=== PATIENT | female | born 1990 | race Caucasian/White ===

== ENCOUNTER 2018-08-01 18:33 | Emergency (ER) | payer MEDICAID ==
[~2018-08-01] VITALS: Ht 157.5 cm; Wt 63.6 kg
[2018-08-01 19:52] LABS: BASOPHILS % (AUTO) 1.1 % (0.0-2.0); EOSINOPHILS % (AUTO) 4.3 % (1.0-6.0); HEMATOCRIT 40.5 % (36-46); HEMOGLOBIN 13.5 g/dL (12.0-16.0); LYMPHOCYTES % (AUTO) 26.9 % (22.0-44.0); MEAN CORPUSCULAR HEMOGLOBIN 29.2 pg (26.0-34.0); MEAN CORPUSCULAR HGB CONC 33.3 G/dL (31.0-37.0); MEAN CORPUSCULAR VOLUME 88 fL (80-100); MONOCYTES # (AUTO) 0.7 K/uL (0.1-1.0); MONOCYTES % (AUTO) 6.1 % (2.0-9.0); NEUTROPHILS # (AUTO) 6.8 K/uL (1.8-7.7); NEUTROPHILS % (AUTO) 61.6 % (40.0-70.0); PLATELET COUNT (AUTO) 275 K/uL (150-450); RED BLOOD CELL COUNT(AUTO) 4.62 MIL/uL (4.00-5.20)
[2018-08-01 20:03] LABS: ANION GAP 9 mmol/L (8-16); CARBON DIOXIDE 28 mmol/L (22-29); CHLORIDE 103 mmol/L (98-107); CREATININE 0.63 mg/dL (0.60-1.30); GLOMERULAR FILTR. RATE CALC > 60 mL/min (>60); GLUCOSE,RANDOM 98 mg/dL (70-110); POTASSIUM 4.1 mmol/L (3.5-5.1); SODIUM SERUM 140 mmol/L (136-145); UREA NITROGEN, BLOOD 15 mg/dL (7-18)
[2018-08-01 20:09] LABS: ALANINE AMINOTRANSFERASE 23 U/L (12-78); ALBUMIN 3.9 g/dL (3.4-5.0); ALKALINE PHOSPHATASE 87 U/L (46-116); ASPARTATE AMINOTRANSFERASE 14 U/L (15-37); BILIRUBIN,TOTAL 0.3 mg/dL (0.1-1.0); TOTAL PROTEIN, SERUM 7.7 g/dL (6.4-8.2)
[2018-08-01 20:46] LABS: APPEARANCE,URINE CLOUDY (CLEAR); BILIRUBIN,URINE NEGATIVE (NEGATIVE); GLUCOSE, URINE (UA) NEGATIVE (NEGATIVE); KETONES,URINE NEGATIVE (NEGATIVE); LEUKOCYTE ESTERASE ,URINE SMALL (NEGATIVE); NITRATE,URINE NEGATIVE (NEGATIVE); OCCULT BLOOD,URINE NEGATIVE (NEGATIVE); PROTEIN,URINE NEGATIVE (NEGATIVE); UROBILINOGEN,URINE 0.2 mg/dL (<=1.0)
[2018-08-01 21:00] LABS: BACTERIA,URINE Few /HPF (None Seen); RBC,URINE None Seen /HPF (0-2); SQUAMOUS EPITHELIAL CELL,UR Moderate /LPF (None Seen)
[2018-08-01 21:35] VITALS: BP 138/68
== END 2018-08-01 21:37 | disposition home or self-care (01) ==
LOC: EMS 18:33
DX: R55 Syncope and collapse (principal); R42 Dizziness and giddiness; N39.0 Urinary tract infection, site not specified
CPT/HCPCS: 93005

== ENCOUNTER 2019-11-23 20:46 | Emergency (ER) | payer MEDICAID ==
[~2019-11-23] VITALS: Ht 162.6 cm; Wt 69.1 kg
[2019-11-23] MEDS: ACETAMINOPHEN 325 MG TABLET PO ONE ×2 (21:36→21:52)
[2019-11-24 00:30] VITALS: BP 114/65
== END 2019-11-24 01:00 | disposition home or self-care (01) ==
LOC: EMS 20:46
DX: S00.83XA Contusion of other part of head, initial encounter (principal); Y08.89XA Assault by other specified means, initial encounter; Y93.89 Activity, other specified; Y92.89 Other specified places as the place of occurrence of the external cause; Y99.8 Other external cause status
CPT/HCPCS: 70450; 70486; 72125

== ENCOUNTER 2020-04-16 22:46 | Emergency (ER) | payer MEDICAID ==
[~2020-04-16] VITALS: Ht 157.5 cm; Wt 77.3 kg
[2020-04-16] MEDS ORDERED: SODIUM CHLORIDE 0.9% 1,000 ML IV ONE (23:15)
[2020-04-16 23:29] LABS: APPEARANCE,URINE CLEAR (CLEAR); BILIRUBIN,URINE NEGATIVE (NEGATIVE); GLUCOSE, URINE (UA) NEGATIVE (NEGATIVE); KETONES,URINE NEGATIVE (NEGATIVE); LEUKOCYTE ESTERASE ,URINE NEGATIVE (NEGATIVE); NITRATE,URINE NEGATIVE (NEGATIVE); OCCULT BLOOD,URINE SMALL (NEGATIVE); PH,URINE 6.5 (5.0-8.0); PROTEIN,URINE NEGATIVE (NEGATIVE); UROBILINOGEN,URINE 0.2 mg/dL (<=1.0)
[2020-04-16 23:29] LABS: BASOPHILS % (AUTO) 0.8 % (0.0-2.0); HEMATOCRIT 37.1 % (36-46); HEMOGLOBIN 12.3 g/dL (12.0-16.0); LYMPHOCYTES # (AUTO) 3.8 K/uL (1.0-4.8); LYMPHOCYTES % (AUTO) 22.8 % (22.0-44.0); MEAN CORPUSCULAR VOLUME 88 fL (80-100); MONOCYTES # (AUTO) 0.8 K/uL (0.1-1.0); MONOCYTES % (AUTO) 4.8 % (2.0-9.0); NEUTROPHILS # (AUTO) 11.5 K/uL (1.8-7.7); NEUTROPHILS % (AUTO) 68.6 % (40.0-70.0); PLATELET COUNT (AUTO) 301 K/uL (150-450); RED BLOOD CELL COUNT(AUTO) 4.23 MIL/uL (4.00-5.20); RED CELL DISTRIBUTION WIDTH 12.5 % (11.5-14.5)
[2020-04-16 23:46] LABS: ANION GAP 9 mmol/L (8-16); CALCIUM, TOTAL 8.9 mg/dL (8.8-10.5); CARBON DIOXIDE 25 mmol/L (22-29); CHLORIDE 103 mmol/L (98-107); CREATININE 0.67 mg/dL (0.60-1.30); GLOMERULAR FILTR. RATE CALC > 60 mL/min (>60); GLUCOSE,RANDOM 89 mg/dL (70-110); POTASSIUM 3.9 mmol/L (3.5-5.1); SODIUM SERUM 137 mmol/L (136-145); UREA NITROGEN, BLOOD 10 mg/dL (7-18)
[2020-04-16 23:54] LABS: BACTERIA,URINE Few /HPF (None Seen); SQUAMOUS EPITHELIAL CELL,UR Few /LPF (None Seen); WBC,URINE 0-2 /HPF (0-5)
[2020-04-17 00:12] LABS: ALANINE AMINOTRANSFERASE 23 U/L (12-78); ALBUMIN 3.4 g/dL (3.4-5.0); ALKALINE PHOSPHATASE 63 U/L (46-116); ASPARTATE AMINOTRANSFERASE 12 U/L (15-37); BILIRUBIN,TOTAL 0.1 mg/dL (0.1-1.0); HCG,QUANTITATIVE 52851 mIU/mL (0-6); LIPASE 152 U/L (73-393); TOTAL PROTEIN, SERUM 7.7 g/dL (6.4-8.2)
[2020-04-17 02:28] VITALS: BP 129/77
== END 2020-04-17 02:32 | disposition home or self-care (01) ==
LOC: EMS 22:46
DX: O26.891 Other specified pregnancy related conditions, first trimester (principal); R11.0 Nausea
CPT/HCPCS: 29515; 76801; 76817

== ENCOUNTER 2020-06-28 12:49 | Emergency (ER) | payer MEDICAID ==
[~2020-06-28] VITALS: Ht 162.6 cm; Wt 81.8 kg
[2020-06-28 14:01] LABS: APPEARANCE,URINE CLEAR (CLEAR); BILIRUBIN,URINE NEGATIVE (NEGATIVE); GLUCOSE, URINE (UA) NEGATIVE (NEGATIVE); KETONES,URINE NEGATIVE (NEGATIVE); LEUKOCYTE ESTERASE ,URINE NEGATIVE (NEGATIVE); NITRATE,URINE NEGATIVE (NEGATIVE); OCCULT BLOOD,URINE NEGATIVE (NEGATIVE); PH,URINE 6.5 (5.0-8.0); PROTEIN,URINE NEGATIVE (NEGATIVE); UROBILINOGEN,URINE 0.2 mg/dL (<=1.0)
[2020-06-28 14:11] LABS: BACTERIA,URINE None Seen /HPF (None Seen); RBC,URINE None Seen /HPF (0-2); WBC,URINE None Seen /HPF (0-5)
[2020-06-28 14:20] LABS: BASOPHILS % (AUTO) 0.9 % (0.0-2.0); EOSINOPHILS % (AUTO) 2.9 % (1.0-6.0); HEMOGLOBIN 11.4 g/dL (12.0-16.0); LYMPHOCYTES # (AUTO) 2.4 K/uL (1.0-4.8); LYMPHOCYTES % (AUTO) 16.7 % (22.0-44.0); MEAN CORPUSCULAR HEMOGLOBIN 28.8 pg (26.0-34.0); MEAN CORPUSCULAR HGB CONC 33.5 G/dL (31.0-37.0); MEAN CORPUSCULAR VOLUME 86 fL (80-100); MONOCYTES # (AUTO) 0.6 K/uL (0.1-1.0); MONOCYTES % (AUTO) 4.4 % (2.0-9.0); NEUTROPHILS # (AUTO) 10.8 K/uL (1.8-7.7); NEUTROPHILS % (AUTO) 75.1 % (40.0-70.0); PLATELET COUNT (AUTO) 223 K/uL (150-450); RED BLOOD CELL COUNT(AUTO) 3.96 MIL/uL (4.00-5.20); RED CELL DISTRIBUTION WIDTH 12.4 % (11.5-14.5)
[2020-06-28 14:30] LABS: ANION GAP 16 mmol/L (8-16); CALCIUM, TOTAL 8.9 mg/dL (8.8-10.5); CARBON DIOXIDE 22 mmol/L (22-29); CHLORIDE 102 mmol/L (98-107); CREATININE 0.54 mg/dL (0.60-1.30); GLOMERULAR FILTR. RATE CALC > 60 mL/min (>60); GLUCOSE,RANDOM 89 mg/dL (70-110); POTASSIUM 3.5 mmol/L (3.5-5.1); SODIUM SERUM 140 mmol/L (136-145); UREA NITROGEN, BLOOD 5 mg/dL (7-18)
[2020-06-28 14:54] LABS: ALANINE AMINOTRANSFERASE 26 U/L (12-78); ALKALINE PHOSPHATASE 55 U/L (46-116); ASPARTATE AMINOTRANSFERASE 13 U/L (15-37); BILIRUBIN,TOTAL 0.2 mg/dL (0.1-1.0); TOTAL PROTEIN, SERUM 7.2 g/dL (6.4-8.2)
[2020-06-28 15:28] LABS: HCG,QUANTITATIVE 13363 mIU/mL (0-6)
[2020-06-28 17:43] VITALS: BP 129/59
== END 2020-06-28 17:49 | disposition home or self-care (01) ==
LOC: EMS 13:02
DX: O26.892 Other specified pregnancy related conditions, second trimester (principal); R10.2 Pelvic and perineal pain; D72.828 Other elevated white blood cell count; Z3A.18 18 weeks gestation of pregnancy
CPT/HCPCS: 76700; 76805; 80053; 81001; 84702; 85025; 99285

== ENCOUNTER 2021-10-30 21:12 | Emergency (ER) | payer MEDICAID ==
[~2021-10-30] VITALS: Ht 160 cm; Wt 68.0 kg
[2021-10-30 21:56] LABS: APPEARANCE,URINE HAZY (CLEAR); BILIRUBIN,URINE NEGATIVE (NEGATIVE); GLUCOSE, URINE (UA) NEGATIVE (NEGATIVE); KETONES,URINE NEGATIVE (NEGATIVE); LEUKOCYTE ESTERASE ,URINE LARGE (NEGATIVE); NITRATE,URINE NEGATIVE (NEGATIVE); OCCULT BLOOD,URINE MODERATE (NEGATIVE); PH,URINE 5.5 (5.0-8.0); PROTEIN,URINE 30-70 mg/dL (NEGATIVE); SPECIFIC GRAVITIY, URINE 1.009 (1.003-1.030); UROBILINOGEN,URINE <=1.0 mg/dL (<=1.0)
[2021-10-30 22:08] VITALS: BP 130/79
[2021-10-30 22:08] LABS: BACTERIA,URINE Few /HPF (None Seen); SQUAMOUS EPITHELIAL CELL,UR Rare /LPF (None Seen); WBC,URINE 51-100 /HPF (0-5)
[2021-10-30] MEDS ORDERED: PHEN-1103 PO (22:10)
[2021-10-30] MEDS ORDERED: SULF-261 PO (22:10)
== END 2021-10-30 22:23 | disposition home or self-care (01) ==
LOC: EMS 21:34
DX: N39.0 Urinary tract infection, site not specified (principal); F10.20 Alcohol dependence, uncomplicated; Z98.51 Tubal ligation status
CPT/HCPCS: 81001; 87086; 99283

== ENCOUNTER 2021-11-06 18:04 | Emergency (ER) | payer MEDICAID ==
[~2021-11-06] VITALS: Ht 165.1 cm; Wt 81.8 kg
[~2021-11-06 18:04] MED LIST: PHEN-1103 PO; SULF-261 PO
[2021-11-06 19:12] VITALS: BP 121/70
[2021-11-06 19:26] LABS: APPEARANCE,URINE CLEAR (CLEAR); BILIRUBIN,URINE NEGATIVE (NEGATIVE); GLUCOSE, URINE (UA) NEGATIVE (NEGATIVE); KETONES,URINE NEGATIVE (NEGATIVE); LEUKOCYTE ESTERASE ,URINE NEGATIVE (NEGATIVE); NITRATE,URINE NEGATIVE (NEGATIVE); OCCULT BLOOD,URINE NEGATIVE (NEGATIVE); PROTEIN,URINE NEGATIVE (NEGATIVE); SPECIFIC GRAVITIY, URINE 1.023 (1.003-1.030); UROBILINOGEN,URINE <=1.0 mg/dL (<=1.0)
[2021-11-06] MEDS ORDERED: FLUC150T61 PO (19:55)
== END 2021-11-06 20:11 | disposition home or self-care (01) ==
LOC: EMS 18:04
DX: B37.9 Candidiasis, unspecified (principal); Z87.440 Personal history of urinary (tract) infections; Z98.890 Other specified postprocedural states; Z98.51 Tubal ligation status
CPT/HCPCS: 81003; 84703; 87210; 99283

== ENCOUNTER 2022-01-10 01:53 | Emergency (ER) | payer MEDICAID ==
[~2022-01-10] VITALS: Ht 165.1 cm; Wt 82.0 kg
[~2022-01-10 01:53] MED LIST changes: +FLUC150T61 PO; -PHEN-1103 PO; +PHEN-674 PO
[2022-01-10 02:40] LABS: COVID AG,FIA SOURCE NASOPHARYNGEAL
[2022-01-10 03:02] LABS: INFLUENZA TYPE A NEGATIVE FOR TYPE A (NEGATIVE); INFLUENZA TYPE B NEGATIVE FOR TYPE B (NEGATIVE)
[2022-01-10 03:31] VITALS: BP 121/65
[2022-01-10] MEDS ORDERED: AMOX500C2 PO ×2 (03:48→18:43)
[2022-01-10] MEDS ORDERED: AMOXICILLIN TRIHYDRATE 250 MG CAPSULE PO ONE (04:00)
== END 2022-01-10 03:58 | disposition home or self-care (01) ==
LOC: EMS 01:54
DX: H66.92 Otitis media, unspecified, left ear (principal); Z98.890 Other specified postprocedural states; Z20.822 Contact with and (suspected) exposure to COVID-19
CPT/HCPCS: 87430; 87804; 99283

== ENCOUNTER 2022-01-10 17:41 | Emergency (ER) | payer MEDICAID ==
[~2022-01-10] VITALS: Ht 162.6 cm; Wt 84.1 kg
[~2022-01-10 17:41] MED LIST changes: +AMOX500C2 PO
[2022-01-10 17:42] VITALS: BP 130/68
[2022-01-10] MEDS ORDERED: AMOX500C2 PO (18:43)
== END 2022-01-10 18:51 | disposition home or self-care (01) ==
LOC: EMS 17:49
DX: H66.92 Otitis media, unspecified, left ear (principal); Z87.440 Personal history of urinary (tract) infections; Z98.890 Other specified postprocedural states
CPT/HCPCS: 99281; Z7502

== ENCOUNTER 2022-02-05 19:41 | Emergency (ER) | payer MEDICAID ==
[~2022-02-05] VITALS: Ht 166.4 cm; Wt 75.0 kg
[2022-02-05] MEDS ORDERED: PERTUSS(ACELL),DIPH,TET VAC/PF 0.5 ML SYRINGE IM. ONE (21:00)
[2022-02-05] MEDS ORDERED: BACITRACIN 0.9 GM PACKET OINTMENT TP ONE (21:00)
[2022-02-05] MEDS ORDERED: ACETAMINOPHEN 500 MG TABLET PO ONE (21:00)
[2022-02-05 23:37] VITALS: BP 124/71
== END 2022-02-06 | disposition home or self-care (01) ==
LOC: EMS 19:56
DX: S01.01XA Laceration without foreign body of scalp, initial encounter (principal); N39.0 Urinary tract infection, site not specified; Z98.890 Other specified postprocedural states; Y08.09XA Assault by strike by other specified type of sport equipment, initial encounter; Y93.89 Activity, other specified; Y92.89 Other specified places as the place of occurrence of the external cause; Y99.8 Other external cause status
CPT/HCPCS: 12002; 70450; 90471; 90715; 99284

== ENCOUNTER 2022-02-12 17:47 | Emergency (ER) | payer MEDICAID ==
[~2022-02-12] VITALS: Ht 165.1 cm; Wt 84.1 kg
[2022-02-12 18:07] VITALS: BP 123/71
[2022-02-13] MEDS ORDERED: FLUC150T61 PO (22:54)
== END 2022-02-12 19:28 | disposition left against medical advice (07) ==
LOC: EMS 17:51
DX: T14.8XXD Other injury of unspecified body region, subsequent encounter (principal); B37.9 Candidiasis, unspecified; Z48.02 Encounter for removal of sutures; Z53.21 Procedure and treatment not carried out due to patient leaving prior to being seen by health care provider; X58.XXXD Exposure to other specified factors, subsequent encounter

== ENCOUNTER 2022-02-13 21:47 | Emergency (ER) | payer MEDICAID ==
[~2022-02-13] VITALS: Ht 165.1 cm; Wt 75.0 kg
[2022-02-13 22:47] VITALS: BP 116/63
[2022-02-13] MEDS ORDERED: FLUC150T61 PO (22:54)
== END 2022-02-13 23:06 | disposition home or self-care (01) ==
LOC: EMS 21:48
DX: S00.00XD Unspecified superficial injury of scalp, subsequent encounter (principal); B37.31 Acute candidiasis of vulva and vagina; Z48.02 Encounter for removal of sutures; X58.XXXD Exposure to other specified factors, subsequent encounter
CPT/HCPCS: 99283

== ENCOUNTER 2022-06-28 18:08 | Emergency (ER) | payer MEDICAID ==
[~2022-06-28] VITALS: Ht 160 cm; Wt 75.0 kg
[~2022-06-28 18:08] MED LIST changes: -AMOX500C2 PO; -PHEN-674 PO; -SULF-261 PO
[2022-06-28] MEDS ORDERED: CYCLOBENZAPRINE HCL 10 MG TABLET PO ONE (19:15)
[2022-06-28] MEDS ORDERED: IBUPROFEN 600 MG TABLET PO ONE (19:15)
[2022-06-28] MEDS ORDERED: IBUP-1492 PO (20:06)
[2022-06-28] MEDS ORDERED: CYCL-448 PO (20:06)
[2022-06-28 20:28] VITALS: BP 131/80
== END 2022-06-28 20:34 | disposition home or self-care (01) ==
LOC: EMS 18:09
DX: M54.6 Pain in thoracic spine (principal); R07.81 Pleurodynia; Z98.890 Other specified postprocedural states; Z98.51 Tubal ligation status
CPT/HCPCS: 71045; 99283

== ENCOUNTER 2022-08-03 17:21 | Emergency (ER) | payer MEDICAID ==
[~2022-08-03] VITALS: Ht 162.6 cm; Wt 82.7 kg
[~2022-08-03 17:21] MED LIST changes: +CYCL-448 PO; +IBUP-1492 PO
[2022-08-03] MEDS ORDERED: NITR-75 PO (17:51)
[2022-08-03] MEDS ORDERED: PHEN-674 PO (17:51)
[2022-08-03 18:04] VITALS: BP 121/63
[2022-08-03 18:12] LABS: APPEARANCE,URINE CLEAR (CLEAR); BILIRUBIN,URINE NEGATIVE (NEGATIVE); GLUCOSE, URINE (UA) NEGATIVE (NEGATIVE); KETONES,URINE NEGATIVE (NEGATIVE); LEUKOCYTE ESTERASE ,URINE SMALL (NEGATIVE); NITRATE,URINE NEGATIVE (NEGATIVE); OCCULT BLOOD,URINE NEGATIVE (NEGATIVE); PH,URINE 6.5 (5.0-8.0); PROTEIN,URINE NEGATIVE (NEGATIVE); SPECIFIC GRAVITIY, URINE 1.021 (1.003-1.030); UROBILINOGEN,URINE <=1.0 mg/dL (<=1.0)
[2022-08-03 18:31] LABS: BACTERIA,URINE None Seen /HPF (None Seen); RBC,URINE 0-2 /HPF (0-2); SQUAMOUS EPITHELIAL CELL,UR Few /LPF (None Seen)
== END 2022-08-03 18:24 | disposition home or self-care (01) ==
LOC: EMS 17:25
DX: N39.0 Urinary tract infection, site not specified (principal); Z98.51 Tubal ligation status; Z98.890 Other specified postprocedural states
CPT/HCPCS: 81001; 99283

== ENCOUNTER 2022-08-17 09:21 | Emergency (ER) | payer MEDICAID ==
[~2022-08-17] VITALS: Ht 157.5 cm; Wt 81.8 kg
[~2022-08-17 09:21] MED LIST changes: -CYCL-448 PO; -FLUC150T61 PO; -IBUP-1492 PO; +NITR-75 PO; +PHEN-674 PO
[2022-08-17] MEDS ORDERED: FLUC150T61 PO (10:27)
[2022-08-17] MEDS ORDERED: MICO45CR76 VG (10:27)
[2022-08-17 10:39] VITALS: BP 120/76
== END 2022-08-17 10:40 | disposition home or self-care (01) ==
LOC: EMS 09:41
DX: B37.31 Acute candidiasis of vulva and vagina (principal); Z98.51 Tubal ligation status; Z98.890 Other specified postprocedural states
CPT/HCPCS: 99281; Z7502

== ENCOUNTER 2022-10-25 10:36 | Emergency (ER) | payer MEDICAID ==
[~2022-10-25] VITALS: Ht 167.6 cm; Wt 8.2 kg
[~2022-10-25 10:36] MED LIST changes: +FLUC150T61 PO; +MICO45CR76 VG; -NITR-75 PO; -PHEN-674 PO
[2022-10-25 10:49] VITALS: BP 136/72; PULSE 63; RESP 18; TEMP 97.6
[2022-10-25] MEDS ORDERED: PERM60CR19 TP (11:02)
[2022-10-25] MEDS ORDERED: DIPH25CA85 PO (11:02)
[2022-10-26] MEDS ORDERED: PERM60CR19 TP (20:34)
== END 2022-10-25 11:30 | disposition home or self-care (01) ==
LOC: EMS 10:36
DX: B86 Scabies (principal); Z98.51 Tubal ligation status; Z98.890 Other specified postprocedural states
CPT/HCPCS: 99282; Z7502

== ENCOUNTER 2022-10-26 18:08 | Emergency (ER) | payer MEDICAID ==
[~2022-10-26] VITALS: Ht 165.1 cm; Wt 81.8 kg
[~2022-10-26 18:08] MED LIST changes: +DIPH25CA85 PO; +PERM60CR19 TP
[2022-10-26 18:16] VITALS: BP 106/58; PULSE 60; RESP 16; TEMP 98.3
[2022-10-26] MEDS ORDERED: PERM60CR19 TP (20:34)
== END 2022-10-26 21:15 | disposition home or self-care (01) ==
LOC: EMS 18:15
DX: B86 Scabies (principal); Z98.51 Tubal ligation status; Z98.890 Other specified postprocedural states
CPT/HCPCS: 99281; Z7502

== ENCOUNTER 2024-01-01 17:07 | Emergency (ER) | payer MEDICAID ==
[~2024-01-01] VITALS: Ht 165.1 cm; Wt 82.0 kg
[2024-01-01 17:18] VITALS: BP 116/74; PULSE 72; RESP 16; TEMP 99; O2SAT 99
[2024-01-01 18:27] LABS: APPEARANCE,URINE CLEAR (CLEAR); COLOR,URINE DARK YELLOW (YELLOW); GLUCOSE, URINE (UA) NEGATIVE (NEGATIVE); KETONES,URINE NEGATIVE (NEGATIVE); LEUKOCYTE ESTERASE ,URINE NEGATIVE (NEGATIVE); NITRATE,URINE POSITIVE (NEGATIVE); OCCULT BLOOD,URINE TRACE (NEGATIVE); PH,URINE 6.5 (5.0-8.0); PROTEIN,URINE NEGATIVE (NEGATIVE); SPECIFIC GRAVITIY, URINE 1.014 (1.003-1.030)
[2024-01-01 18:42] LABS: BILIRUBIN,URINE SMALL (NEGATIVE)
[2024-01-01] MEDS ORDERED: PHENAZOPYRIDINE HCL 100 MG TABLET PO ONE (19:00)
[2024-01-01] MEDS ORDERED: CEPHALEXIN MONOHYDRATE 500 MG CAPSULE PO ONE (19:00)
[2024-01-01 19:10] LABS: BACTERIA,URINE Few /HPF (None Seen); SQUAMOUS EPITHELIAL CELL,UR Few /LPF (None Seen)
[2024-01-01] MEDS ORDERED: PHEN-846 PO (21:10)
[2024-01-01] MEDS ORDERED: CEPH-558 PO (21:10)
== END 2024-01-01 20:18 | disposition left against medical advice (07) ==
LOC: EMS 17:08
DX: N39.0 Urinary tract infection, site not specified (principal); Z98.51 Tubal ligation status; Z98.890 Other specified postprocedural states
CPT/HCPCS: 81001; 84703; 99283

== ENCOUNTER 2024-06-29 13:14 | Emergency (ER) | payer MEDICAID ==
[~2024-06-29] VITALS: Ht 165.1 cm; Wt 85.0 kg
[~2024-06-29 13:14] MED LIST changes: +CEPH-558 PO; -DIPH25CA85 PO; -FLUC150T61 PO; -MICO45CR76 VG; -PERM60CR19 TP; +PHEN-846 PO
[2024-06-29 13:22] VITALS: BP 97/46; PULSE 75; RESP 18; TEMP 98.2; O2SAT 99
[2024-06-29 14:04] LABS: INFLUENZA TYPE A NEGATIVE FOR TYPE A (NEGATIVE); INFLUENZA TYPE B NEGATIVE FOR TYPE B (NEGATIVE)
== END 2024-06-29 13:25 | disposition left against medical advice (07) ==
LOC: EMS 13:14
DX: H92.03 Otalgia, bilateral (principal); Z53.21 Procedure and treatment not carried out due to patient leaving prior to being seen by health care provider
CPT/HCPCS: 87804

== ENCOUNTER 2024-07-18 18:23 | Emergency (ER) | payer MEDICAID ==
[~2024-07-18] VITALS: Ht 165.1 cm; Wt 8.6 kg
[2024-07-18 18:55] LABS: BASOPHILS % (AUTO) 0.9 % (0.0-2.0); EOSINOPHILS % (AUTO) 2.9 % (1.0-6.0); HEMATOCRIT 34.9 % (36-46); HEMOGLOBIN 11.6 g/dL (12.0-16.0); MEAN CORPUSCULAR HEMOGLOBIN 28.5 pg (26.0-34.0); MEAN CORPUSCULAR HGB CONC 33.3 G/dL (31.0-37.0); MEAN CORPUSCULAR VOLUME 86 fL (80-100); MONOCYTES # (AUTO) 0.7 K/uL (0.1-1.0); MONOCYTES % (AUTO) 6.2 % (2.0-9.0); PLATELET COUNT (AUTO) 260 K/uL (150-450); RED BLOOD CELL COUNT(AUTO) 4.07 MIL/uL (4.00-5.20); RED CELL DISTRIBUTION WIDTH 13.1 % (11.5-14.5); WHITE BLOOD COUNT (AUTO) 11.1 K/uL (4.5-11.0)
[2024-07-18 19:04] LABS: CALCIUM, TOTAL 8.9 mg/dL (8.8-10.5); CARBON DIOXIDE 26 mmol/L (22-29); CREATININE 0.57 mg/dL (0.60-1.30); GLOMERULAR FILTR. RATE CALC > 60 mL/min (>60); GLUCOSE,RANDOM 89 mg/dL (70-110); POTASSIUM 3.4 mmol/L (3.5-5.1); SODIUM SERUM 137 mmol/L (136-145); UREA NITROGEN, BLOOD 6 mg/dL (7-18)
[2024-07-18 19:06] LABS: APPEARANCE,URINE CLEAR (CLEAR); BILIRUBIN,URINE NEGATIVE (NEGATIVE); COLOR,URINE COLORLESS (YELLOW); GLUCOSE, URINE (UA) NEGATIVE (NEGATIVE); KETONES,URINE NEGATIVE (NEGATIVE); LEUKOCYTE ESTERASE ,URINE SMALL (NEGATIVE); NITRATE,URINE NEGATIVE (NEGATIVE); OCCULT BLOOD,URINE SMALL (NEGATIVE); PH,URINE 6.5 (5.0-8.0); PROTEIN,URINE NEGATIVE (NEGATIVE); SPECIFIC GRAVITIY, URINE 1.001 (1.003-1.030); UROBILINOGEN,URINE <=1.0 mg/dL (<=1.0)
[2024-07-18 19:14] LABS: BACTERIA,URINE Few /HPF (None Seen)
[2024-07-18 19:15] LABS: ANION GAP 7 mmol/L (8-16); CHLORIDE 104 mmol/L (98-107); HCG,QUANTITATIVE 1 mIU/mL (0-6)
[2024-07-18 19:15] LABS: SQUAMOUS EPITHELIAL CELL,UR Few /LPF (None Seen)
[2024-07-18] MEDS ORDERED: CEPH-558 PO (21:25)
[2024-07-18] MEDS: CEPHALEXIN MONOHYDRATE 500 MG CAPSULE PO ONE (21:32)
[2024-07-18 21:39] VITALS: BP 119/70; PULSE 74; RESP 18; TEMP 97.3; O2SAT 98
== END 2024-07-18 23:26 | disposition home or self-care (01) ==
LOC: EMS 18:23
DX: N39.0 Urinary tract infection, site not specified (principal); Z98.51 Tubal ligation status
CPT/HCPCS: 80048; 81001; 84702; 85025; 87086; 99283